=== PATIENT | male | born 1955 | race Caucasian/White ===

== ENCOUNTER 2018-05-15 15:16 | Inpatient (IN) | payer OTHER ==
[~2018-05-15] VITALS: Ht 177.8 cm; Wt 110.0 kg
[~2018-05-15 15:16] MED LIST: K, MAG and/or Phos replacement - Verify level? MC SCH; pantoprazole 40 MG vial IV SCH
[2018-05-15] MEDS ORDERED: levetiracetam inj 1,000 MG in normal saline 100ml IV soln 90 ML IV ONE (15:25)
[2018-05-15 15:40] LABS: BASOPHILS # (AUTO) 0.2 X10'3 (0-0.2); BASOPHILS % (AUTO) 1.4 % (0-1); EOSINOPHILS % (AUTO) 0.3 % (0-6); HEMATOCRIT 35.9 % (42.0-52.0); HEMOGLOBIN 11.2 g/dl (14.0-17.9); LYMPHOCYTES # (AUTO) 4.5 X10'3 (1.1-4.8); MEAN CORPUSCULAR HEMOGLOBIN 25.9 PG (27.0-31.0); MEAN CORPUSCULAR HGB CONC 31.1 % (33.0-36.5); MEAN CORPUSCULAR VOLUME 83.2 FL (78-98); MEAN PLATELET VOLUME 10.4 FL (7.4-10.4); MONOCYTES # (AUTO) 1.3 X10'3 (0-0.9); NEUTROPHILS # (AUTO) 6.8 X10'3 (1.8-7.7); NEUTROPHILS % (AUTO) 53.3 % (42-75); PLATELET COUNT 245 X10'3 (140-440); RED BLOOD COUNT 4.32 X10'6 (4.70-6.10); RED CELL DISTRIBUTION WIDTH 19.7 % (11.5-14.5); WHITE BLOOD COUNT 12.8 X10'3 (4.5-11.0)
[2018-05-15 15:49] LABS: INR 1.5 INR; PARTIAL THROMBOPLASTIN TIME 26 SECONDS (22-32); PROTHROMBIN TIME 15.4 SECONDS (9.0-12.0)
[2018-05-15 16:02] LABS: ALANINE AMINOTRANSFERASE 38 U/L (12-78); ALBUMIN 3.1 G/DL (3.4-5.0); ALBUMIN/GLOBULIN RATIO 0.9 (1.1-1.5); ALKALINE PHOSPHATASE 183 IU/L (46-116); ANION GAP 24 (8-16); BILIRUBIN,TOTAL 1.9 MG/DL (0.1-1.0); BLOOD UREA NITROGEN 98 MG/DL (7-18); CALCIUM 8.8 MG/DL (8.5-10.1); CHLORIDE 97 MMOL/L (99-107); CREATININE 6.12 MG/DL (0.60-1.10); GLUCOSE 59 MG/DL (70-104); MAGNESIUM 2.8 MG/DL (1.5-2.4); SODIUM 134 MMOL/L (135-145); TOTAL PROTEIN 6.7 G/DL (6.4-8.2); eGFR 9 ML/MIN
[2018-05-15] MEDS: DOBUTamine-DoBUTrex 500mg/D5W 250 ML IV SCH ×2 (16:03→16:14)
[2018-05-15] MEDS: epiNEPHrine inj 5 MG in normal saline 250ml IV soln 245 ML IV SCH ×2 (16:04→16:08)
[2018-05-15 16:05] LABS: ASPARTATE AMINO TRANSFERASE 61 U/L (10-37); TOTAL CARBON DIOXIDE 12.8 MMOL/L (24-32)
[2018-05-15 16:06] LABS: POTASSIUM 7.2 MMOL/L (3.5-5.1)
[2018-05-15] MEDS ORDERED: albuterol 2.5 MG/3 ML nebule CONTNEB ONE (16:10)
[2018-05-15] MEDS ORDERED: NORepinephrine 1 mg/ml inj IV ONE (16:28)
[2018-05-15] MEDS ORDERED: normal saline 1000ml 1,000 ML IV SCH (16:37)
[2018-05-15] MEDS ORDERED: potassium Cl 20 mEq SR tablet PO PRN ×2 (16:40)
[2018-05-15] MEDS ORDERED: magnesium hydroxide 30ml (MOM) UD suspension PO PRN (16:40)
[2018-05-15] MEDS ORDERED: acetaminophen 325mg tablet PO PRN ×2 (16:40)
[2018-05-15] MEDS ORDERED: ondansetron/PF 4mg/2ml inj IV PRN (16:40)
[2018-05-15 16:46] VITALS: BP 71/30
[2018-05-15] MEDS ORDERED: NORepinephrine 8mg/ 250ml NS 250 ML IV SCH (16:50)
[2018-05-15] MEDS ORDERED: calcium chloride 100 MG/1 ML inj IV ONE (18:00)
[2018-05-15] MEDS ORDERED: epiNEPHrine 1 mg/ml 30ml MDV ONE (18:00)
[2018-05-15] MEDS ORDERED: NORepinephrine bitartrate 8 MG in NS 250 ML BAG (32 mcg/ml) IV ONE (18:00)
[2018-05-15] MEDS ORDERED: 0.9 % SODIUM CHLORIDE 10 ML VIAL ONE (18:00)
[2018-05-15] MEDS ORDERED: dextrose 50%-water 50ml dispensing syringe IV ONE (18:00)
[2018-05-15] MEDS ORDERED: sodium bicarbonate (8.4%) 1 mEq/ml syringe ONE (18:00)
[2018-05-15] MEDS ORDERED: epiNEPHrine 0.1mg/ml 10ml syringe ONE (18:00)
[2018-05-15] MEDS ORDERED: amiodarone in dextrose, iso-osm 150mg/100ml bag IV ONE (18:00)
[2018-05-15] MEDS ORDERED: heparin, porcine 5000 units/ml vial SQ SCH (20:00)
== END 2018-05-15 18:30 | disposition expired | DRG 316 ==
LOC: ER 15:22 → ED HOLD 16:37
PROC: 5A1935Z Respiratory Ventilation, Less than 24 Consecutive Hours (ICD-10-PCS; principal; 2018-05-15)
PROC: 0BH17EZ Insertion of Endotracheal Airway into Trachea, Via Natural or Artificial Opening (ICD-10-PCS; 2018-05-15)
PROC: 5A12012 Performance of Cardiac Output, Single, Manual (ICD-10-PCS; 2018-05-15)
PROC: 06HY33Z Insertion of Infusion Device into Lower Vein, Percutaneous Approach (ICD-10-PCS; 2018-05-15)
PROC: B54BZZA Ultrasonography of Right Lower Extremity Veins, Guidance (ICD-10-PCS; 2018-05-15)
DX: I42.9 Cardiomyopathy, unspecified (principal); I46.9 Cardiac arrest, cause unspecified; I50.84 End stage heart failure; N18.9 Chronic kidney disease, unspecified; R56.9 Unspecified convulsions; M54.9 Dorsalgia, unspecified; I95.9 Hypotension, unspecified; Z76.82 Awaiting organ transplant status
CPT/HCPCS: 36415; 71045; 80053; 82800; 82948; 83735; 83880; 84484; 85025; 85610; 85730; 92950; 92960; 94002; 94640; 99291; 99292; A7015; A7526; C1751; C1758; J0171; J0282; J1953; J7030; J7040